=== PATIENT | female | born 1985 | race Caucasian/White ===

== ENCOUNTER 2020-04-04 13:45 | Emergency (ER) | payer OTHER, BC ==
[~2020-04-04] VITALS: Ht 154.9 cm; Wt 73.9 kg
[2020-04-04 13:53] VITALS: Ht 154.9 cm; Wt 73.9 kg
[2020-04-04 14:02] VITALS: BP 140/71
== END 2020-04-04 14:28 | disposition home or self-care (01) ==
LOC: ED 13:45
DX: S63.502A Unspecified sprain of left wrist, initial encounter (principal); S80.811A Abrasion, right lower leg, initial encounter; S00.81XA Abrasion of other part of head, initial encounter; Z91.018 Allergy to other foods; Z88.8 Allergy status to other drugs, medicaments and biological substances; V48.5XXA Car driver injured in noncollision transport accident in traffic accident, initial encounter; Y93.I9 Activity, other involving external motion; Y92.488 Other paved roadways as the place of occurrence of the external cause; Y99.8 Other external cause status
CPT/HCPCS: A4570; Q0092